=== PATIENT | male | born 1950 | race African-American/Black ===

== ENCOUNTER 2018-12-31 06:30 | Emergency (ER) | payer MEDICARE, MEDICAID ==
[~2018-12-31] VITALS: Ht 170.2 cm; Wt 102.1 kg
[~2018-12-31 06:30] MED LIST: [UNRECOGNIZED DRUG - CODE] PO
[2018-12-31] MEDS ORDERED: SODIUM CHLORIDE 0.9% 1,000 ML IV ONE (07:32)
[2018-12-31] MEDS ORDERED: METOCLOPRAMIDE HCL 5MG/ml INJ 2ml VIAL IV ONE (07:45)
[2018-12-31] MEDS ORDERED: HYDROmorphone HCL 2 MG/ML VL IV ONE ×2 (07:45→17:30)
[2018-12-31 09:11] LABS: Basophils # (auto) 0 uL; Basophils % (auto) 0.3 % (0.0-2.0); Eosinophils # (auto) 0 uL; Eosinophils % (auto) 0.1 % (0.0-7.0); Hemoglobin 11.9 g/dL (13.5-17.5); Lymphocytes # (auto) 0.6 uL; Lymphocytes % (auto) 6.8 % (10.0-50.0); Neutrophils # (auto) 7.8 uL
[2018-12-31 09:12] LABS: Hematocrit 36.6 % (41.0-53.0); Mean Corpuscular Hemoglobin 25.4 pg (28.0-32.0); Mean Corpuscular Hgb Conc. 32.6 g/dL (32.0-36.0); Mean Corpuscular Volume 77.9 fL (80.0-100.0); Monocytes % (auto) 10.3 % (0.0-12.0); Neutrophils % (auto) 82.5 % (37.0-80.0); Platelet Count (auto) 140 10^3/uL (140-450); Red Cell Distribution Width 13.9 % (11.8-14.3); White Blood Cell 9.5 10^3/uL (4.4-10.8)
[2018-12-31 09:25] LABS: Alanine Aminotransferase 25 U/L (16-61); Albumin 3.7 g/dL (3.4-5.0); Anion Gap 11 (5-15); Aspartate Aminotransferase 15 U/L (15-37); BUN/Creatinine Ratio 14.4; Blood Urea Nitrogen 22 mg/dL (7-18); Carbon Dioxide 28 mmol/L (21-32); Chloride 101 mmol/L (98-107); GFR African American 58 mL/min; GFR Non-African American 48 mL/min; Glucose 116 mg/dL (74-106); Magnesium 2.9 mg/dL (1.6-2.6); Sodium 140 mmol/L (136-145)
[2018-12-31 09:28] LABS: Alkaline Phosphatase 63 U/L (45-117); Bilirubin, Total 0.9 mg/dL (0.2-1.0); Total Protein 8.1 g/dL (6.4-8.2)
[2018-12-31 09:32] LABS: Potassium 2.8 mmol/L (3.5-5.1)
[2018-12-31] MEDS ORDERED: POTASSIUM EFFERVESENT TAB 25 MEQ PO ONE (10:00)
[2018-12-31] MEDS ORDERED: DexAMETHasone SOD PHOS 10MG/1ML VIAL INJ IV ONE (15:15)
[2018-12-31] MEDS ORDERED: PROMETHAZINE HCL 25 MG/ML 1ML IV ONE (17:30)
[2018-12-31 18:06] VITALS: BP 120/71
== END 2018-12-31 18:29 | disposition home or self-care (01) ==
LOC: EDBD 06:30 → ER 06:30
DX: M54.16 Radiculopathy, lumbar region (principal); I48.91 Unspecified atrial fibrillation; I25.10 Atherosclerotic heart disease of native coronary artery without angina pectoris; I11.0 Hypertensive heart disease with heart failure; I50.9 Heart failure, unspecified; Z95.810 Presence of automatic (implantable) cardiac defibrillator; Z88.5 Allergy status to narcotic agent; Z79.899 Other long term (current) drug therapy
CPT/HCPCS: 36415; 71045; 72131; 80053; 83735; 85025; 93005; 96374; 96375; 96376; 99284; J1100; J1170; J2550; J2765; J7030